=== PATIENT | female | born 1965 | race African-American/Black ===

== ENCOUNTER 2019-03-07 23:07 | Emergency (ER) | payer SELFPAY ==
[~2019-03-07] VITALS: Ht 175.3 cm; Wt 62.0 kg
[2019-03-08 01:57] VITALS: BP 110/65
== END 2019-03-08 03:16 | disposition left against medical advice (07) ==
LOC: ER 23:07
DX: Z53.21 Procedure and treatment not carried out due to patient leaving prior to being seen by health care provider (principal)

== ENCOUNTER 2019-03-15 06:48 | Emergency (ER) | payer SELFPAY | END 2019-03-15 08:11 | disposition left against medical advice (07) | LOC: ER 07:01 | DX: Z53.21 Procedure and treatment not carried out due to patient leaving prior to being seen by health care provider (principal) ==

== ENCOUNTER 2019-03-18 22:16 | Emergency (ER) | payer SELFPAY | END 2019-03-19 00:57 | disposition left against medical advice (07) | LOC: ER 22:16 | DX: M54.5 Low back pain (principal); Z53.21 Procedure and treatment not carried out due to patient leaving prior to being seen by health care provider ==

== ENCOUNTER 2019-03-23 23:11 | Emergency (ER) | payer SELFPAY | END 2019-03-24 00:29 | disposition left against medical advice (07) | LOC: ER 23:11 | DX: Z53.21 Procedure and treatment not carried out due to patient leaving prior to being seen by health care provider (principal) ==

== ENCOUNTER 2019-03-29 21:24 | Emergency (ER) | payer SELFPAY | END 2019-03-30 03:51 | disposition left against medical advice (07) | LOC: ER 21:24 | DX: M54.5 Low back pain (principal); M25.579 Pain in unspecified ankle and joints of unspecified foot; Z53.21 Procedure and treatment not carried out due to patient leaving prior to being seen by health care provider ==